=== PATIENT | female | born 1955 | race African-American/Black ===

== ENCOUNTER 2016-09-22 14:24 | Emergency (ER) | payer MEDICARE, MEDICAID ==
[~2016-09-22] VITALS: Ht 160 cm; Wt 63.0 kg
[2016-09-22 15:10] VITALS: BP 130/86
== END 2016-09-22 16:55 | disposition home or self-care (01) ==
LOC: ER 15:10
DX: F41.9 Anxiety disorder, unspecified (principal); G56.02 Carpal tunnel syndrome, left upper limb; M25.561 Pain in right knee; F31.9 Bipolar disorder, unspecified; Z88.5 Allergy status to narcotic agent; Z59.0 Homelessness
CPT/HCPCS: 99283

== ENCOUNTER 2016-10-13 15:38 | Emergency (ER) | payer MEDICARE, MEDICAID ==
[~2016-10-13] VITALS: Ht 160 cm; Wt 63.0 kg
[2016-10-13 15:44] VITALS: BP 114/81
[2016-10-13] MEDS ORDERED: CARISOPRODOL 350 MG TABLET PO ONE (16:45)
== END 2016-10-13 17:15 | disposition home or self-care (01) ==
LOC: ER 15:39
DX: Z76.0 Encounter for issue of repeat prescription (principal); M79.673 Pain in unspecified foot; F41.9 Anxiety disorder, unspecified; F31.9 Bipolar disorder, unspecified; Z88.5 Allergy status to narcotic agent
CPT/HCPCS: 99283

== ENCOUNTER 2017-03-25 10:07 | Emergency (ER) | payer MEDICARE, MEDICAID ==
[~2017-03-25] VITALS: Ht 162.6 cm; Wt 65.0 kg
[2017-03-25 15:18] VITALS: BP 142/82
== END 2017-03-25 17:25 | disposition left against medical advice (07) ==
LOC: ER 10:51
DX: F41.9 Anxiety disorder, unspecified (principal); F31.9 Bipolar disorder, unspecified; G40.909 Epilepsy, unspecified, not intractable, without status epilepticus; E86.0 Dehydration; G62.9 Polyneuropathy, unspecified; M79.673 Pain in unspecified foot; F32.9 Major depressive disorder, single episode, unspecified; Z91.14 Patient's other noncompliance with medication regimen; Z88.5 Allergy status to narcotic agent; Z87.440 Personal history of urinary (tract) infections
CPT/HCPCS: 99283